=== PATIENT | male | born 1950 | race Caucasian/White ===

== ENCOUNTER 2023-10-22 09:17 | Inpatient (IN) | payer OTHER ==
[~2023-10-22] VITALS: Ht 185.4 cm; Wt 67.5 kg
[2023-10-23 20:35] VITALS: BP 126/70; PULSE 76; RESP 21; O2SAT 98
[2023-10-23] MEDS ORDERED: ACETAMINOPHEN 325 MG TAB PO PRN (20:45)
[2023-10-23] MEDS ORDERED: ONDANSETRON HCL 4 MG/2 ML VIAL IV PRN (20:45)
[2023-10-23 21:23] VITALS: PULSE 76; RESP 21; O2SAT 98
[2023-10-23 21:52] VITALS: BP 143/99; PULSE 75; RESP 19; O2SAT 93
[2023-10-23 22:00] VITALS: BP 121/58; PULSE 81; RESP 19; TEMP 98.4; O2SAT 92
[2023-10-23] MEDS: IPRATROPIUM BROM 0.5 MG/2.5ML INH SOL ONE (22:10)
[2023-10-23 22:14] LABS: INR 1.08 (0.9-1.15); Prothrombin Time 11.4 sec (9.3-11.8)
[2023-10-23 23:00] VITALS: BP 123/57; PULSE 84; RESP 23; O2SAT 90
[2023-10-23] MEDS: methylPREDNISolone SOD SUCC 40 MG/ML VL IV SCH (23:14)
[2023-10-23] MEDS: DOXYCYCLINE 100MG/250ML 250 ML IV SCH (23:14)
[2023-10-23 23:15] LABS: Base Excess 4.9 mmol/L (-2.0-2.0)
[2023-10-23] MEDS: CEFEPIME 1GM/ 50ML 50 ML IV SCH (23:15)
[2023-10-24] VITALS (36 sets, daily range): BP systolic 87–153; BP diastolic 51–85; PULSE 76–99; RESP 18–28; TEMP 97.8–99.2; O2SAT 85–99
[2023-10-24] MEDS: IPRATROPIUM BROM 0.5 MG/2.5ML INH SOL NEB SCH (00:11)
[2023-10-24 05:52] LABS: Basophils # (auto) 0 10 ^3/uL (0-0.2); Basophils % (auto) 0.1 % (0.0-2.0); Eosinophils # (auto) 0 10 ^3/uL (0-0.8); Hematocrit 31.5 % (41.0-53.0); Hemoglobin 10.2 g/dL (13.5-17.5); Lymphocytes # (auto) 0.4 10 ^3/uL (0.4-5.4); Mean Corpuscular Hgb Conc. 32.3 g/dL (32.0-36.0); Mean Corpuscular Volume 86.4 fL (80.0-100.0); Monocytes # (auto) 0.2 10 ^3/uL (0-1.3); Monocytes % (auto) 1.4 % (0.0-12.0); Neutrophils # (auto) 10.7 10 ^3/uL (1.6-8.6); Neutrophils % (auto) 94.5 % (37.0-80.0); Red Blood Cells 3.65 10^6/uL (4.5-5.90); White Blood Cell 11.3 10^3/uL (4.4-10.8)
[2023-10-24 06:03] LABS: Calcium 9.2 mg/dL (8.7-10.4); Chloride 100 mmol/L (98-107); Potassium 4.3 mmol/L (3.5-5.1); Red Cell Distribution Width 20.5 % (11.8-14.3); Sodium 134 mmol/L (136-145)
[2023-10-24 06:04] LABS: Anion Gap 4 (5-15); Carbon Dioxide 30 mmol/L (20-30)
[2023-10-24 06:09] LABS: BUN/Creatinine Ratio 28.6 (10.0-20.0); Blood Urea Nitrogen 26 mg/dL (9-23); Glucose 146 mg/dL (74-106)
[2023-10-24 06:45] LABS: Base Excess 3.8 mmol/L (-2.0-2.0)
[2023-10-24] MEDS: PANTOPRAZOLE 40 MG/10 ML VIAL INJ IV SCH (09:32)
[2023-10-24] MEDS: ENOXAPARIN SOD 40 MG/0.4 ML SYRINGE SC SCH (09:32)
[2023-10-24] MEDS: FUROSEMIDE 20 MG/2 ML VIAL IV ONE (11:49)
[2023-10-24] MEDS: FUROSEMIDE 20 MG/2 ML VIAL IV SCH (18:00)
[2023-10-24] MEDS: HYDROcodone-ACET 5/325MG TAB PO PRN (22:27)
[2023-10-25] VITALS (35 sets, daily range): BP systolic 113–150; BP diastolic 47–98; PULSE 74–106; RESP 15–29; TEMP 98–99; O2SAT 82–100
[2023-10-25 05:10] LABS: Basophils # (auto) 0 10 ^3/uL (0-0.2); Basophils % (auto) 0.1 % (0.0-2.0); Eosinophils # (auto) 0 10 ^3/uL (0-0.8); Hematocrit 31.3 % (41.0-53.0); Hemoglobin 10.2 g/dL (13.5-17.5); Lymphocytes # (auto) 0.8 10 ^3/uL (0.4-5.4); Lymphocytes % (auto) 6.1 % (10.0-50.0); Mean Corpuscular Hemoglobin 27.9 pg (28.0-32.0); Mean Corpuscular Hgb Conc. 32.6 g/dL (32.0-36.0); Mean Corpuscular Volume 85.5 fL (80.0-100.0); Monocytes # (auto) 0.5 10 ^3/uL (0-1.3); Neutrophils # (auto) 11.2 10 ^3/uL (1.6-8.6); Neutrophils % (auto) 89.8 % (37.0-80.0); Nucleated Red Blood Cells % 0.1 %; Red Blood Cells 3.66 10^6/uL (4.5-5.90); White Blood Cell 12.5 10^3/uL (4.4-10.8)
[2023-10-25 05:14] LABS: Red Cell Distribution Width 20.9 % (11.8-14.3)
[2023-10-25 05:19] LABS: Chloride 98 mmol/L (98-107); Potassium 4.2 mmol/L (3.5-5.1); Sodium 132 mmol/L (136-145)
[2023-10-25 05:20] LABS: Anion Gap 4 (5-15); Calcium 9.1 mg/dL (8.7-10.4); Carbon Dioxide 30 mmol/L (20-30)
[2023-10-25 05:25] LABS: BUN/Creatinine Ratio 28.8 (10.0-20.0); Blood Urea Nitrogen 32 mg/dL (9-23); Glucose 138 mg/dL (74-106)
[2023-10-25] MEDS: LORazepam 2MG/ML-1ML VIAL IV PRN (10:06)
[2023-10-25] MEDS: QUEtiapine FUMARATE 25 MG TAB PO ONE (13:36)
[2023-10-25] MEDS: QUEtiapine FUMARATE 25 MG TAB PO SCH (21:00)
[2023-10-25] MEDS ORDERED: methylPREDNISolone SOD SUCC 40 MG/ML VL IV SCH (22:00)
[2023-10-26] VITALS (25 sets, daily range): BP systolic 100–135; BP diastolic 60–77; PULSE 70–109; RESP 15–30; TEMP 93.5–99.2; O2SAT 86–100
[2023-10-26 05:17] LABS: Basophils # (auto) 0 10 ^3/uL (0-0.2); Basophils % (auto) 0.1 % (0.0-2.0); Eosinophils # (auto) 0 10 ^3/uL (0-0.8); Eosinophils % (auto) 0.1 % (0.0-7.0); Hemoglobin 10.8 g/dL (13.5-17.5); Lymphocytes # (auto) 1.1 10 ^3/uL (0.4-5.4); Mean Corpuscular Hemoglobin 28.2 pg (28.0-32.0); Mean Corpuscular Hgb Conc. 32.7 g/dL (32.0-36.0); Mean Corpuscular Volume 86.4 fL (80.0-100.0); Monocytes # (auto) 1.6 10 ^3/uL (0-1.3); Monocytes % (auto) 10.1 % (0.0-12.0); Neutrophils # (auto) 13.5 10 ^3/uL (1.6-8.6); Neutrophils % (auto) 82.7 % (37.0-80.0); Red Blood Cells 3.83 10^6/uL (4.5-5.90); White Blood Cell 16.3 10^3/uL (4.4-10.8)
[2023-10-26 05:19] LABS: Red Cell Distribution Width 21.5 % (11.8-14.3)
[2023-10-26 05:28] LABS: Anion Gap 5 (5-15); Carbon Dioxide 30 mmol/L (20-30); Chloride 99 mmol/L (98-107); Potassium 3.9 mmol/L (3.5-5.1); Sodium 134 mmol/L (136-145)
[2023-10-26 05:29] LABS: Calcium 9.2 mg/dL (8.7-10.4)
[2023-10-26 05:33] LABS: Glucose 106 mg/dL (74-106)
[2023-10-26 05:34] LABS: BUN/Creatinine Ratio 29.7 (10.0-20.0); Blood Urea Nitrogen 35 mg/dL (9-23); Magnesium 1.8 mg/dL (1.6-2.6)
[2023-10-26] MEDS ORDERED: LEVO88TA4 PO (15:15)
[2023-10-26] MEDS ORDERED: SIMV40TA18 PO (15:15)
[2023-10-26] MEDS ORDERED: MONT-8 PO (15:15)
[2023-10-26] MEDS ORDERED: METF-372 PO (15:15)
[2023-10-26] MEDS ORDERED: GABA300T4 PO (15:15)
[2023-10-27] VITALS (23 sets, daily range): BP systolic 105–125; BP diastolic 57–72; PULSE 58–100; RESP 14–26; TEMP 97.1–98.5; O2SAT 92–100
[2023-10-27 05:16] LABS: Calcium 9.2 mg/dL (8.7-10.4); Chloride 99 mmol/L (98-107); Potassium 3.7 mmol/L (3.5-5.1); Sodium 133 mmol/L (136-145)
[2023-10-27 05:17] LABS: Anion Gap 5 (5-15); Carbon Dioxide 29 mmol/L (20-30)
[2023-10-27 05:22] LABS: Glucose 106 mg/dL (74-106)
[2023-10-27 05:23] LABS: Magnesium 1.8 mg/dL (1.6-2.6)
[2023-10-27 05:25] LABS: Hematocrit 32.3 % (41.0-53.0); Hemoglobin 10.5 g/dL (13.5-17.5); Mean Corpuscular Hemoglobin 27.6 pg (28.0-32.0); Mean Corpuscular Hgb Conc. 32.6 g/dL (32.0-36.0); Mean Corpuscular Volume 84.8 fL (80.0-100.0); Red Blood Cells 3.81 10^6/uL (4.5-5.90); White Blood Cell 12.5 10^3/uL (4.4-10.8)
[2023-10-27 05:33] LABS: Red Cell Distribution Width 22.4 % (11.8-14.3)
[2023-10-27 05:35] LABS: Basophils % (manual) 0 (0.0-2.0); Blast Cells 0; Eosinophils % (manual) 0 (0-7); Promyelocytes % 0; Reactive Lymphocytes 0
[2023-10-27 06:21] LABS: BUN/Creatinine Ratio 30.9 (10.0-20.0); Blood Urea Nitrogen 42 mg/dL (9-23)
[2023-10-27 07:49] LABS: Platelet Estimate Adequate
[2023-10-27 07:50] LABS: Anisocytosis Slight; Band Neutrophils % (manual) 1; Lymphocytes % (manual) 10 (10.0-50.0); Metamyelocytes % 1; Monocytes % (manual) 4 (0-12); Myelocytes % 1
[2023-10-28] VITALS (25 sets, daily range): BP systolic 104–120; BP diastolic 65–77; PULSE 85–102; RESP 16–23; TEMP 96.8–98; O2SAT 90–100
[2023-10-28 06:35] LABS: Basophils # (auto) 0 10 ^3/uL (0-0.2); Basophils % (auto) 0.2 % (0.0-2.0); Eosinophils # (auto) 0.3 10 ^3/uL (0-0.8); Eosinophils % (auto) 2.5 % (0.0-7.0); Hemoglobin 11.3 g/dL (13.5-17.5); Lymphocytes # (auto) 1.2 10 ^3/uL (0.4-5.4); Lymphocytes % (auto) 11.5 % (10.0-50.0); Mean Corpuscular Hemoglobin 29.1 pg (28.0-32.0); Mean Corpuscular Hgb Conc. 34.1 g/dL (32.0-36.0); Mean Corpuscular Volume 85.5 fL (80.0-100.0); Monocytes # (auto) 0.7 10 ^3/uL (0-1.3); Monocytes % (auto) 6.8 % (0.0-12.0); Neutrophils # (auto) 8.1 10 ^3/uL (1.6-8.6); Nucleated Red Blood Cells % 0.1 %; Red Blood Cells 3.86 10^6/uL (4.5-5.90); White Blood Cell 10.2 10^3/uL (4.4-10.8)
[2023-10-28 06:42] LABS: Chloride 100 mmol/L (98-107); Potassium 3.7 mmol/L (3.5-5.1); Sodium 134 mmol/L (136-145)
[2023-10-28 06:43] LABS: Anion Gap 5 (5-15); Carbon Dioxide 29 mmol/L (20-30)
[2023-10-28 06:44] LABS: Calcium 9.1 mg/dL (8.7-10.4)
[2023-10-28 06:49] LABS: BUN/Creatinine Ratio 30.2 (10.0-20.0); Blood Urea Nitrogen 39 mg/dL (9-23); Glucose 114 mg/dL (74-106)
[2023-10-28 07:05] LABS: Red Cell Distribution Width 21.6 % (11.8-14.3)
[2023-10-29] VITALS (12 sets, daily range): BP systolic 117–127; BP diastolic 67–73; PULSE 82–100; RESP 16–18; TEMP 96.3–97.9; O2SAT 90–100
== END 2023-10-29 15:25 | DRG 177 ==
LOC: TELE 10-23 20:46 → UNDOADMIN 10-23 20:46 → DOU IN ICU 10-23 20:51 → TELE-CENTR 10-28 11:00
PROVIDERS: ADMIT Internal Medicine; ATTEND Internal Medicine
PROC: 5A09357 Assistance with Respiratory Ventilation, Less than 24 Consecutive Hours, Continuous Positive Airway Pressure (ICD-10-PCS; principal; 2023-10-23)
DX: J15.69 Pneumonia due to other Gram-negative bacteria (principal); G93.41 Metabolic encephalopathy; J96.01 Acute respiratory failure with hypoxia; J44.1 Chronic obstructive pulmonary disease with (acute) exacerbation; E87.1 Hypo-osmolality and hyponatremia; I69.954 Hemiplegia and hemiparesis following unspecified cerebrovascular disease affecting left non-dominant side; J44.0 Chronic obstructive pulmonary disease with (acute) lower respiratory infection; J15.9 Unspecified bacterial pneumonia; I11.0 Hypertensive heart disease with heart failure; I73.9 Peripheral vascular disease, unspecified; I25.10 Atherosclerotic heart disease of native coronary artery without angina pectoris; I50.9 Heart failure, unspecified; F17.200 Nicotine dependence, unspecified, uncomplicated; Z95.1 Presence of aortocoronary bypass graft; Z89.511 Acquired absence of right leg below knee; Z82.5 Family history of asthma and other chronic lower respiratory diseases; Z80.0 Family history of malignant neoplasm of digestive organs; Z78.1 Physical restraint status
CPT/HCPCS: 36415; 36600; 71045; 80048; 82805; 83605; 83735; 85007; 85025; 85027; 85610; 87081; 93005; 93306; 94640; 97110; 97163; 97530; G0378; J2470; J3490